=== PATIENT | female | born 1970 | race Caucasian/White ===

== ENCOUNTER 2017-04-01 12:25 | Emergency (ER) | END 2017-04-01 16:04 | disposition home or self-care (01) ==

== ENCOUNTER 2018-08-03 09:16 | Emergency (ER) | payer BC, OTHER ==
[~2018-08-03] VITALS: Ht 154.9 cm; Wt 63.0 kg
[~2018-08-03 09:16] MED LIST: ACYC800T PO; CIPR500T4 PO; GLIP5TAB13 PO; HYDR-762 PO; IBUP-1542 PO; METF-849 PO; NAPR-985 PO; ONDA4TAB8 PO; POLY17PO6 PO; TRAM50TA2 PO
[2018-08-03 09:23] VITALS: BP 162/77; PULSE 71; RESP 16; Ht 154.9 cm; Wt 63.0 kg
[2018-08-03] MEDS ORDERED: PHENAZOPYRIDINE 100 MG TAB PO ONE (10:30)
[2018-08-03] MEDS ORDERED: CEPHALEXIN 500 MG CAP PO ONE (10:30)
[2018-08-03] MEDS ORDERED: ACETAMINOPHEN 325 MG TAB PO ONE (10:30)
[2018-08-03] MEDS ORDERED: PHEN-538 PO (10:34)
[2018-08-03] MEDS ORDERED: CEPH-443 PO (10:34)
[2018-08-03] MEDS ORDERED: IBUP-1542 PO (10:34)
--- NOTE | 2018-08-03 10:36 | ERD ---
ER Documentation Chief Complaint Chief Complaint painful urination , blood in urine x 2 days with chills HPI 48-year-old female presents with dysuria and hematuria for last 2 days. She den ies fevers, vomiting, flank pain. She has mild suprapubic pain. She has a history of UTI although last treatment was over a year ago. ROS All systems reviewed and are negative except as per history of present illness. Medications Home Meds Active Scripts Ibuprofen* (Motrin*) 600 Mg Tab, 600 MG PO Q6, #15 TAB Prov:MARY GUZMAN MD 08/03/18 Phenazopyridine Hcl* (Pyridium*) 200 Mg Tab, 200 MG PO TID PRN for URINARY PAIN, #6 TAB Prov:MARY GUZMAN MD 08/03/18 Cephalexin* (Keflex*) 500 Mg Capsule, 500 MG PO QID for 5 Days, CAP Prov:MARY GUZMAN MD 08/03/18 Ibuprofen* (Motrin*) 600 Mg Tab, 600 MG PO Q6, #20 TAB Prov:MARY GUZMAN MD 04/01/17 Ondansetron Hcl* (Zofran*) 4 Mg Tablet, 4 MG PO Q6H for NAUSEA AND/OR VOMITING, #30 TAB Prov:MARJ SINGH PA-C 01/02/16 Naproxen* (Naprosyn*) 500 Mg Tablet, 500 MG PO BID PRN for PAIN AND/OR IN FLAMMATION, #30 TAB Prov:MARJ SINGH PA-C 01/02/16 Tramadol HCl (Tramadol HCl) 50 Mg Tablet, 50 MG PO Q4 PRN for PAIN, #20 TAB Prov:MARJ SINGH PA-C 01/02/16 Polyethylene Glycol* (Miralax*) 17 Gm Powd.pack, 17 GM PO DAILY, #10 Prov:MARJ SINGH PA-C 01/02/16 Hydrocodone Bit-Acetaminophen* ([place]*) 10-325 Mg Tablet, 1 TAB PO Q6 PRN for PAIN, #20 TAB Prov:JARED PHILIPPE 12/09/14 Ciprofloxacin Hcl* (Ciprofloxacin Hcl*) 500 Mg Tablet, 500 MG PO BID for 7 Days, TAB Prov:JARED PHILIPPE 12/09/14 Reported Medications Acyclovir* (Acyclovir*) 800 Mg Tablet, 800 MG PO DAILY, TAB 12/09/14 Metformin* (Glucophage*) 500 Mg Tab, 500 MG PO WITH BREAKFAST, TAB 01/23/14 Glipizide* (Glipizide*) 5 Mg Tablet, 5 MG PO DAILY, TAB 01/23/14 Allergies Allergies: Coded Allergies: No Known Allergy (Unverified , 04/01/17) PMhx/Soc History of Surgery: Yes (3 c-sections, gallbladder) Anesthesia Reaction: No Hx Neurological Disorder: No Hx Respiratory Disorders: No Hx Cardiac Disorders: No Hx Psychiatric Problems: No Hx Miscellaneous Medical Probl: Yes (DM) Hx Alcohol Use: No Hx Substance Use: No Hx Tobacco Use: No Smoking Status: Never smoker FmHx Family History: No diabetes, No coronary disease, No other Physical Exam Vitals Vital Signs Date Temp Pulse Resp B/P (MAP) Pulse Ox O2 O2 Flow FiO2 Time Delivery Rate 08/03/18 97.8 71 16 162/77 99 09:23 (105) Physical Exam Const: No acute distress Head: Atraumatic Eyes: Normal Conjunctiva ENT: Normal External Ears, Nose and Mouth. Neck: Full range of motion. No meningismus. Resp: Clear to auscultation bilaterally Cardio: Regular rate and rhythm, no murmurs Abd: Soft, non tender, non distended. Normal bowel sounds. Minimal suprapubic tenderness. No tenderness at McBurney's point no Anne sign and no rebound. Skin: No petechiae or rashes Back: No midline or flank tenderness Ext: No cyanosis, or edema Neur: Awake and alert Psych: Normal Mood and Affect Results 24 hrs Laboratory Tests Test 08/03/18 09:52 08/03/18 09:53 Urine Color STRAW Urine Clarity SLIGHTLY CLOUDY Urine pH 7.0 Urine Specific [place] 1.017 Urine Ketones NEGATIVE mg/dL Urine Nitrite NEGATIVE mg/dL Urine Bilirubin NEGATIVE mg/dL Urine Urobilinogen NEGATIVE mg/dL Urine Leukocyte Esterase 3+ Charlene/ul Urine Microscopic RBC 32 /HPF Urine Microscopic WBC 118 /HPF Urine Hemoglobin 3+ mg/dL Urine Glucose 3+ mg/dL Urine Total Protein NEGATIVE mg/dl POC Beta HCG, Qualitative NEGATIVE Current Medications Medications Dose Sig/Vince Start Time Status Last (Trade) Ordered Route PRN Stop Time Admin Dose Reason Admin 650 mg ONCE ONCE 08/03/18 DC 08/03/18 Acetaminophen PO 10:30 10:29 (Tylenol 08/03/18 10:31 Tab) Cephalexin 500 mg ONCE ONCE 08/03/18 DC 08/03/18 (Keflex) PO 10:30 10:29 08/03/18 10:31 200 mg ONCE ONCE 08/03/18 DC 08/03/18 Phenazopyridi PO 10:30 10:29 ne HCl 08/03/18 10:31 (Pyridium) Procedures/MDM Urine shows glucose, hemoglobin and white blood cells. There is no ketones. Patient presents with signs and symptoms of uncomplicated UTI. She has no signs of DKA, severe sepsis, significant abdominal pain. She was given Keflex here and was treated with Keflex, Pyridium, ibuprofen, primary care follow-up and return precautions. The patient was stable with no new complaints during the ER course. Clinically, there is no current evidence to suggest meningitis, sepsis, acute abdomen, pneumonia, stroke, acute coronary syndrome, pulmonary embolism, aortic dissection or any other emergent condition appearing to require further evaluation or hospitalization. Patient counseled regarding my diagnostic impression and care plan. Prior to discharge all questions answered. Pt agrees with treatment plan and understands strict return precautions. Pt is instructed to follow up with primary care provider within 24-48 hours. Precautionary instructions provided including instructions to return to the ER if not improving or for any worsening or changing symptoms or concerns. Disclaimer: Inadvertent spelling and grammatical errors are likely due to EHR/dictation software use and do not reflect on the overall quality of patient care. Also, please note that the electronic time recorded on this note does not necessarily reflect the actual time of the patient encounter. Departure Diagnosis: Primary Impression: UTI (urinary tract infection) Urinary tract infection type: acute cystitis Hematuria presence: without hematuria Qualified Codes: N30.00 - Acute cystitis without hematuria Condition: Stable Patient Instructions: Understanding Urinary Tract Infections (UTIs) Referrals: TREVON YEBOAH (PCP) Additional Instructions: Urine shows infection. Drink plenty fluids at home. Recheck for fevers, vomiting, new or worsening symptoms. MARY GUZMAN MD Aug 03, 2018 10:36
== END 2018-08-03 10:40 | disposition home or self-care (01) ==
LOC: FTE 09:16
DX: N30.00 Acute cystitis without hematuria (principal); E11.9 Type 2 diabetes mellitus without complications; Z79.84 Long term (current) use of oral hypoglycemic drugs
CPT/HCPCS: 81001; 81025; Z7610; 99283